=== PATIENT | female | born 2000 | race Caucasian/White ===

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

== ENCOUNTER → 2019-06-28 | Outpatient (CLI) | payer OTHER, MEDICAID ==
[~2019-06-28] MED LIST: ALBU83IN; AZIT200S30; COMPMIS43
--- NOTE | 2019-06-28 16:45 | REP ---
Two-view chest x-ray: 06/28/2019. Indication: Dyspnea. Comparison: None. Findings: The patient is status post median sternotomy. There is no pneumothorax or significant pleural effusion. Air space opacity is noted within the left lower lobe. Remaining lungs are clear. Impression: Left lower lobe pneumonia. Electronically Signed by Fransisco Banuelos DO 06/28/2019 04:36 P
== END ==
LOC: M LRY 16:14
PROVIDERS: ATTEND Nurse Practitioner Family
DX: R09.89 Other specified symptoms and signs involving the circulatory and respiratory systems (principal)

== ENCOUNTER 2019-06-29 12:38 | Inpatient (IN) | payer OTHER, MEDICAID ==
[~2019-06-29] VITALS: Ht 142.2 cm; Wt 55.3 kg
[2019-06-29] MEDS ORDERED: SODIUM CHLORIDE 0.9% 1000ML IV STA ×2 (12:52→13:33)
[2019-06-29] MEDS ORDERED: FLUID PLACE HOLDER IV SCH (13:00)
[2019-06-29] MEDS ORDERED: VANCOMYCIN HCL IV SCH (13:00)
[2019-06-29 13:30] VITALS: BP 111/55
[2019-06-29] MEDS ORDERED: ALBU83IN (13:41)
[2019-06-29] MEDS ORDERED: AZIT200S30 (13:41)
[2019-06-29] MEDS ORDERED: COMPMIS43 (13:41)
--- NOTE | 2019-06-29 13:42 | HPE ---
DATE OF ADMISSION: 06/29/2019 REASON FOR ADMISSION: Pneumonia. 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 This was not associated with any runny nose, fever, change in appetite, decreased activity level. Mom was treating with [id number] cough syrup and watched her at home for a day. After this, she seemed to be improving and went back to school. However, the following day at school, she began to act "not herself" and seemed to be drinking much more than usual and was less playful. About 3 days prior to admission, she developed fever, worsening cough, and diarrhea and vomiting. The diarrhea and vomiting was multiple times a day and she was not tolerating liquids well as fall. She began to be fatigued and was sleeping quite a bit. Mom administered antidiarrheals and by the following day the emesis had slowed down and she began to tolerate liquids. On day prior to admission however, she was still not seeming to improve, the fever was high, and her cough was worsening. She went to an urgent care where she saw a nurse practitioner who ordered a chest x-ray that showed a left lobar pneumonia. Upon arrival she was hypoxic to the 70s per mom. They report that it improved to upper 80s after nebs. She was given outpatient azithromycin for her lobar pneumonia and albuterol and discharged home. She did not improve but worsened and presented to outpatient pediatric office for followup. On day of admission she was voiding well and drinking well, but her respiratory status was worse as described above. In the outpatient pediatric office, a albuterol nebulizer was attempted, which did not provide any relief of symptoms with regards to work of breathing and hypoxia. Supplemental oxygen was applied via face mask and her oxygen level improved from 80% to 91%. Rapid flu swab was positive for influenza A REVIEW OF SYSTEMS: CONSTITUTIONAL : Is as above. HEENT: Mild congestion and rhinorrhea. No photophobia, conjunctival injection or otalgia. CARDIOVASCULAR: They deny chest pain, cyanosis, dizziness, faintness and palpitations. RESPIRATORY: Cough and increased work of breathing as above. GASTROINTESTINAL: Is as above, though these symptoms have resolved. GENITOURINARY (): They deny burning with urination and decreased urine output. MUSCULOSKELETAL: They deny bone pain and joint pain. They do affirm midback pain. SKIN: There is no rash described. There are no hives. No petechia, no other lesions. No bruising. MEDICATIONS PRIOR TO ADMISSION: The patient was on azithromycin but otherwise no medications. ALLERGIES: No known drug allergies. PAST MEDICAL HISTORY: Significant for trisomy 21. Scoliosis. The patient has a history of complete atrioventricular septal defect, which is status post repair at 11 weeks of age. She also has history of subaortic stenosis that was resected at 9 years of age. She does have very mild mitral and tricuspid incompetence which is not clinically significant. She is followed by pediatric cardiology every 2 years and does not have any restrictions from a cardiac standpoint. FAMILY HISTORY: Significant for father with asthma. Brother with seasonal allergies. Paternal grandfather with leukemia. Maternal grandmother with breast cancer. Ages of onset of these cancers is unknown. SOCIAL HISTORY: The patient lives with mother and father and younger brother. She attends school daily. There are no smokers in the home. There are two dogs in the home. The patient is not sexually active. PHYSICAL EXAMINATION: On exam temperature is a 101.4, heart rate is 108, respirations 16, oxygen saturation is 80% on room air, 91% on 4 liters via face mask, blood pressure 110/70. CONSTITUTIONAL: The patient appears mildly dehydrated but is in no acute distress. HEENT: The patient has facies typical of Down syndrome. Conjunctiva is not injected. There is no discharge from the eyes. Nasal mucosa is erythematous. She has mild nasal congestion. Tympanic membranes are translucent and there is a sharp cone of light and ossicles are visible. NECK: Has full range of motion. There is no lymphadenopathy. RESPIRATORY: She has frequent wet cough. There are coarse rales audible in the left lower lobe. The remainder of the lung kaur are clear. There is mildly increased work of breathing. CARDIOVASCULAR: Regular rate and rhythm. There is no heart murmur appreciated. Capillary refill is 3-4 seconds. GASTROINTESTINAL (GI): Abdomen is soft, nontender, nondistended. There is no guarding, rigidity or rebound tenderness. There is no palpable hepatosplenomegaly. SKIN: Warm and dry with no visible rash. RADIOGRAPHIC DATA: Chest x-ray performed at urgent care is reviewed and shows left lower lobe pneumonia. 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 Plan to admit to pediatrics for IV ampicillin, vancomycin, and fluid resuscitation. Will obtain a blood culture, CBC, CMP. Titrate oxygen to keep sats above 92% while awake, 89% while asleep. Mother and floor nurses are informed of plan and verbalized agreement. CHRISD
[2019-06-29] MEDS ORDERED: INFLUENZA QUADRIVALENT PF VACCINE 0.5ML SYRINGE (90686) IM PRN (14:15)
[2019-06-29 14:42] LABS: BASO % 0.4 % (0.0-1.0); EOS % 0.1 % (0.0-3.0); HEMATOCRIT 35.3 % (36.0-47.0); HEMOGLOBIN 12.3 g/dl (12.0-15.5); LYMPH # 0.5 10^3/uL (1.5-5.0); LYMPH % 6.9 % (24.0-44.0); MEAN CORPUSCULAR HEMOGLOBIN 33.3 pg (27.0-33.0); MEAN CORPUSCULAR HGB CONC 34.8 g/dl (32.0-36.5); MEAN CORPUSCULAR VOLUME 95.7 fl (80.0-96.0); MONO # 0.3 10^3/uL (0.0-0.8); MONO % 4.2 % (0.0-5.0); NEUTROPHILS # 6.8 10^3/uL (1.5-8.5); NEUTROPHILS % 87.8 % (36.0-66.0); PLATELET COUNT, AUTOMATED 328 10^3/uL (150-450); RED BLOOD COUNT 3.69 10^6/uL (4.00-5.40); WHITE BLOOD COUNT 7.8 10^3/uL (4.0-10.0)
[2019-06-29 15:09] LABS: ALBUMIN 3.4 GM/DL (3.2-5.2); ALT/SGPT 24 U/L (12-78); BILIRUBIN,TOTAL 0.4 MG/DL (0.2-1.0); BLOOD UREA NITROGEN 12 MG/DL (7-18); CALCIUM LEVEL 8.5 MG/DL (8.5-10.1); CARBON DIOXIDE LEVEL 24 MEQ/L (21-32); CHLORIDE LEVEL 99 MEQ/L (98-107); CREATININE FOR GFR 1.07 MG/DL (0.55-1.30); GLUCOSE, FASTING 113 MG/DL (70-100); POTASSIUM SERUM 3.9 MEQ/L (3.5-5.1); SODIUM LEVEL 132 MEQ/L (136-145); TOTAL PROTEIN 7.6 GM/DL (6.4-8.2)
[2019-06-29] MEDS: KCL 20MEQ IN D5/0.45NS 1000ML 1,000 ML IV SCH (15:27)
[2019-06-29 15:30] VITALS: BP 114/89
[2019-06-29] MEDS: AMPICILLIN 1 GM VIAL IV SCH ×2 (15:39→22:50)
[2019-06-29] MEDS ORDERED: VANCOMYCIN HCL 500 MG in D5W MINI-BAG PLUS 100 ML IV ONE (19:00)
[2019-06-29 20:00] VITALS: BP 128/82
[2019-06-29] MEDS ORDERED: VANCOMYCIN HCL 750 MG, VIAL MATE ADAPTER 1 EACH in D5W 250 ML IV ONE (20:00)
[2019-06-29] MEDS: ACETAMINOPHEN TAB 650MG DOSE (2X325MG) PO PRN (23:13)
[2019-06-29 23:31] VITALS: BP 130/82
[2019-06-30 04:00] VITALS: BP 115/60
[2019-06-30] MEDS: KCL 20MEQ IN D5/0.45NS 1000ML 1,000 ML IV SCH ×2 (04:19→14:25)
[2019-06-30] MEDS: AMPICILLIN 1 GM VIAL IV SCH ×4 (04:19→20:35)
[2019-06-30] MEDS: IBUPROFEN 600 MG TAB PO PRN ×3 (04:46→20:35)
[2019-06-30 09:00] VITALS: BP 112/58
[2019-06-30] MEDS: ALBUTEROL SULFATE 2.5 MG/0.5 ML INH NEB SOLN NEB SCH ×3 (11:38→20:00)
[2019-06-30 15:45] LABS: BLOOD UREA NITROGEN 5 MG/DL (7-18); CALCIUM LEVEL 8.2 MG/DL (8.5-10.1); CARBON DIOXIDE LEVEL 28 MEQ/L (21-32); CHLORIDE LEVEL 106 MEQ/L (98-107); CREATININE FOR GFR 0.83 MG/DL (0.55-1.30); GLUCOSE, FASTING 118 MG/DL (70-100); POTASSIUM SERUM 4.6 MEQ/L (3.5-5.1); SODIUM LEVEL 138 MEQ/L (136-145)
[2019-06-30 16:00] VITALS: BP 133/61
[2019-06-30] MEDS ORDERED: VANCOMYCIN HCL 1,000 MG, VIAL MATE ADAPTER 1 EACH in D5W 250 ML IV SCH (19:00)
[2019-06-30 20:00] VITALS: BP 116/58
[2019-06-30 23:44] VITALS: BP 135/60
[2019-07-01] MEDS: ALBUTEROL SULFATE 2.5 MG/0.5 ML INH NEB SOLN NEB SCH ×4 (01:08→19:20)
[2019-07-01] MEDS: AMPICILLIN 1 GM VIAL IV SCH ×4 (03:32→20:05)
[2019-07-01 04:05] VITALS: BP 134/79
[2019-07-01] MEDS: KCL 20MEQ IN D5/0.45NS 1000ML 1,000 ML IV SCH ×2 (08:17→18:30)
[2019-07-01 09:00] VITALS: BP 120/60
[2019-07-01] MEDS: IBUPROFEN 600 MG TAB PO PRN (09:08)
[2019-07-01] MEDS ORDERED: ALBUTEROL SULFATE 2.5 MG/0.5 ML INH NEB SOLN NEB PRN (09:45)
[2019-07-01 12:15] VITALS: BP 119/73
[2019-07-01] MEDS ORDERED: AZITHROMYCIN 250 MG TAB PO ONE (12:30)
[2019-07-01] MEDS: LACTOBACILLUS ACIDOPHILUS CAP (BACID) PO SCH (13:07)
[2019-07-01 16:30] VITALS: BP 130/72
[2019-07-01] MEDS: ACETAMINOPHEN TAB 650MG DOSE (2X325MG) PO PRN (18:44)
[2019-07-01 20:00] VITALS: BP 119/59
[2019-07-02] VITALS: BP 129/58
[2019-07-02] MEDS: ALBUTEROL SULFATE 2.5 MG/0.5 ML INH NEB SOLN NEB SCH ×4 (02:24→20:51)
[2019-07-02] MEDS: AMPICILLIN 1 GM VIAL IV SCH ×4 (03:50→21:32)
[2019-07-02 04:00] VITALS: BP 125/59
[2019-07-02 08:45] VITALS: BP 120/56
[2019-07-02] MEDS: AZITHROMYCIN 250 MG TAB PO SCH (08:49)
[2019-07-02] MEDS: LACTOBACILLUS ACIDOPHILUS CAP (BACID) PO SCH (08:49)
[2019-07-02] MEDS: IBUPROFEN 600 MG TAB PO PRN ×2 (08:50→20:06)
[2019-07-02 12:25] VITALS: BP 116/85
[2019-07-02] MEDS: KCL 20MEQ IN D5/0.45NS 1000ML 1,000 ML IV SCH (15:22)
[2019-07-02 16:30] VITALS: BP 127/72
[2019-07-02 20:00] VITALS: BP 140/64
[2019-07-03] VITALS: BP 119/67
[2019-07-03] MEDS: ALBUTEROL SULFATE 2.5 MG/0.5 ML INH NEB SOLN NEB SCH ×4 (00:55→19:31)
[2019-07-03] MEDS: AMPICILLIN 1 GM VIAL IV SCH ×3 (03:48→15:00)
[2019-07-03 04:00] VITALS: BP 127/95
[2019-07-03] MEDS: ACETAMINOPHEN TAB 650MG DOSE (2X325MG) PO PRN (04:56)
[2019-07-03 08:00] VITALS: BP 111/54
[2019-07-03] MEDS ORDERED: dexameTHASONE 20 MG/5 ML VIAL (J1100) IV ONE (08:00)
[2019-07-03] MEDS: LACTOBACILLUS ACIDOPHILUS CAP (BACID) PO SCH (09:04)
[2019-07-03] MEDS: AZITHROMYCIN 250 MG TAB PO SCH (09:04)
[2019-07-03 11:53] LABS: HEMATOCRIT 34.6 % (36.0-47.0); HEMOGLOBIN 11.9 g/dl (12.0-15.5); MEAN CORPUSCULAR HEMOGLOBIN 33.9 pg (27.0-33.0); MEAN CORPUSCULAR HGB CONC 34.4 g/dl (32.0-36.5); MEAN CORPUSCULAR VOLUME 98.6 fl (80.0-96.0); PLATELET COUNT, AUTOMATED 399 10^3/uL (150-450); RED BLOOD COUNT 3.51 10^6/uL (4.00-5.40); WHITE BLOOD COUNT 6.7 10^3/uL (4.0-10.0)
--- NOTE | 2019-07-03 11:57 | IPN ---
DATE: 07/03/2019 REASON FOR CONSULTATION: Persistent hypoxia in the face of a recent respiratory infection. REQUESTING PROVIDER: Dr. Crockett HISTORY OF PRESENT ILLNESS: Johana is a 18-year-old female with Down syndrome who presented with acute infectious symptoms initially to an urgent care and then for admission here on June 29. She was tachycardiac and febrile at that point in time and had a left lower lobe pneumonia. She was treated with IV ampicillin, vancomycin and fluid resuscitation. The PCR came back mycoplasma positive pneumonia and therefore her antibiotics were deescalated to ampicillin and azithromycin. As she had been on briefly on azithromycin as an outpatient, it was felt that maybe there is a secondary infection requiring ampicillin. She is also on Bacid. During our hospital stay, she did not have a DVT prophylaxis. However, reportedly, she has been ambulating on a daily basis. Upon my entering the room, the mother and daughter are sleeping. The patient is easily awoken. She is coughing when she wakes. She has having a nonproductive cough. I do not auscultate any wheezing from the bedside. The patient's mother states that she has never had trouble with a history of fluid, edema in the past. No prior history of pulmonary embolism. The patient appears comfortable and in no pain. There have been no documented fevers over the past 24 hours. The patient is not tachypneic, does not appear short of breath. She did have some trouble with vomiting or being nauseous because of coughing at times but is not vomiting today. PAST MEDICAL HISTORY: Trisomy 21, scoliosis, history of ASD repaired at 11 weeks, had a second repair at age 9. According to the mother, according to charts there was subaortic stenosis at that time. Apparently, she has been followed by cardiology every few years without any known restrictions. FAMILY HISTORY: Significant for asthma, seasonal allergies, leukemia and breast cancer. SOCIAL HISTORY: The patient lives with her mother and father. No smoking. No illicit drug use. No alcohol use. REVIEW OF SYSTEMS: Limited because of the patient's mental capacity. HEENT: Congestion and rhinorrhea, which have improved since admission. No headache or difficulty swallowing. Cardiovascular: No chest pain, orthopnea. No lower extremity edema. No palpitations. Respiratory: As per history of present illness. No hemoptysis. No history of tuberculosis or tuberculosis contacts. Gastrointestinal: The patient is tolerating diet well now. No nausea, vomiting over the past 24 hours. No diarrhea. Genitourinary: No burning or pain with urination. No hematuria, nocturia. Neurologic: No history of seizure. No history of head injury. No imbalance. Muscular and skeletal: No bony pain. No joint inflammation. Skin: No rashes, jaundice or bruising. No psoriatic lesions. Psychiatric: Difficult to assess. The patient appears fairly well content despite being ill. Sleep has not been evaluated, possible underlying sleep apnea given body habitus. PHYSICAL EXAMINATION: VITAL SIGNS: Temperatures 98.3, pulse is 74, respiratory rate is 20-22, blood pressure is 111/54, mean arterial pressure is 73, oxygen saturation 95% on 0.50 FIO2 with 20 liters bled in through Vapotherm. When I was in the room, I reduced the FiO2 to 45%. General: Awake, alert, coughing and without audible wheeze. Is able to speak without dyspnea. HEENT: Sclerae clear and anicteric. Pupils equal, react to light. Mucous membranes are moist. Tongue is large. There are no significant tongue lesions. Oropharynx is crowded. Mallampati 4. I am unable to see the posterior pharynx. Neck is supple. No tracheal deviation or mass. Lymphatics: No cervical, supraclavicular or axillary adenopathy. Cardiac: Regular S1, S2. Point of maximum impulse (PMI) is difficult to palpate but appears displaced laterally. Pulmonary: Decreased breath sounds at the bases bilaterally. There is dullness to percussion approximately one-third of the bases bilaterally. Otherwise clear without rales, rhonchi or wheezes. There is no prolongation of the expiratory phase. Abdomen: Soft, nontender, nondistended. Extremities: No cyanosis, clubbing or edema. There is no significant pitting edema. Skin: No rash, jaundice or bruising. Negative Homans' sign of the lower extremities. Neurologic: No unilateral weakness perceived. The patient is moving all extremities appropriately. She has an arm board on her right arm for IV protection. LABORATORIES: White blood cell count of 7.8 that was performed on the , there have been laboratories repeated since that time. There has actually been no blood work repeated since of . The patient tends to be a hard stick and there were no significant abnormalities at that point in time for required monitoring. Mycoplasma PCR, as mentioned above, was positive. Methicillin resistant Staphylococcus aureus (MRSA) PCR was negative from the skin. X-ray from 06/18/2019 shows cardiomegaly, sternal wires, left lower lobe pneumonia on the lateral films. No evidence of pneumothorax or pleural effusion. IMPRESSION: 1. Hypoxemia with a recent pneumonia. The reason for hypoxia is likely recovery from pneumonia; however, the patient has not been on DVT prophylaxis during the time of pneumonia and therefore runs the risk of having a pulmonary embolism. We will check D-dimer. The patient has no lower extremity edema or calf pain. She does not have sinus tachycardia at this point in time but is bordering on sinus tachycardia today. If this is positive, we will proceed with CT angio. If this is negative, we will obtain a chest x-ray. There is some question of volume status in a patient who has cardiomegaly and may have had iatrogenic fluid overload. I will obtain a pro BNP and diuresis may be attempted depending on resolution of hypoxia and results of chest x-ray. The patient is net positive over the past 24 hours. Therefore, the differential for the hypoxia remains wide but the most likely cause is resolving infection. Would continue pulmonary toilet, getting the patient out of bed to a chair on a daily basis, and start pep/lung recruitment exercises. I will continue to follow this patient and complete workup for possible alternative causes of hypoxia. CHRISD
[2019-07-03 12:00] VITALS: BP 118/57
[2019-07-03 12:12] LABS: ALBUMIN 2.5 GM/DL (3.2-5.2); ALT/SGPT 28 U/L (12-78); BILIRUBIN,TOTAL 0.4 MG/DL (0.2-1.0); BLOOD UREA NITROGEN 7 MG/DL (7-18); CALCIUM LEVEL 8.3 MG/DL (8.5-10.1); CARBON DIOXIDE LEVEL 27 MEQ/L (21-32); CHLORIDE LEVEL 104 MEQ/L (98-107); CREATININE FOR GFR 0.76 MG/DL (0.55-1.30); GLUCOSE, FASTING 118 MG/DL (70-100); NT-PRO BNP 218 PG/ML (<125); POTASSIUM SERUM 5.4 MEQ/L (3.5-5.1); SODIUM LEVEL 137 MEQ/L (136-145); TOTAL PROTEIN 6.5 GM/DL (6.4-8.2)
[2019-07-03] MEDS ORDERED: ISOVUE-370 76% 100ML VIAL (Q9967) As Ordered ONE ×2 (12:32→18:22)
[2019-07-03] MEDS: KCL 20MEQ IN D5/0.45NS 1000ML 1,000 ML IV SCH (13:49)
[2019-07-03 16:00] VITALS: BP 133/62
--- NOTE | 2019-07-03 18:27 | REPVR ---
PROCEDURE INFORMATION: Exam: US Duplex Lower Extremity Veins Exam date and time: 07/03/2019 6:01 PM Clinical history: 18 years old, female; Abnormal findings; Abnormal lab test; Elevated d-dimer; Additional info: Positive d-dimer, pathypoxic, unable to do CT scan TECHNIQUE: Imaging protocol: Real-time duplex ultrasound of the Lower Extremities with 2-D marte scale, color Doppler flow and spectral waveform analysis with image documentation. Complete exam focused on the bilateral lower extremity veins. COMPARISON: No relevant prior studies available. FINDINGS: Right deep veins: Unremarkable. The common femoral, femoral, proximal profunda femoral, popliteal and posterior tibial veins are patent without thrombus. Normal Doppler waveforms. Normal compressibility and/or augmentation response. Right superficial veins: Saphenofemoral junction is patent without thrombus. Left deep veins: Unremarkable. The common femoral, femoral, proximal profunda femoral, popliteal and posterior tibial veins are patent without thrombus. Normal Doppler waveforms. Normal compressibility and/or augmentation response. Left superficial veins: Saphenofemoral junction is patent without thrombus. Soft tissues: Unremarkable. IMPRESSION: No sonographic evidence of deep vein thrombosis. Electronically signed by: Eddie Jon On 07/03/2019 18:26:48 PM
[2019-07-03 20:00] VITALS: BP 142/62
[2019-07-03] MEDS: CEFDINIR 300 MG CAP (OMNICEF) PO SCH (20:33)
[2019-07-03] MEDS ORDERED: ENOXAPARIN 40 MG/0.4 ML SYRINGE (J1650) SC SCH (21:00)
[2019-07-04] VITALS (22 sets, daily range): BP systolic 124–170; BP diastolic 60–111
[2019-07-04] MEDS: ALBUTEROL SULFATE 2.5 MG/0.5 ML INH NEB SOLN NEB SCH ×4 (00:23→19:36)
[2019-07-04] MEDS: IBUPROFEN 600 MG TAB PO PRN (00:49)
--- NOTE | 2019-07-04 09:09 | REP ---
Chest x-ray: Two views. History: Hypoxia. Comparison study: June 28, 2019. Findings: The patient is status post prior median sternotomy. Cardiomegaly is observed. Cardiothoracic ratio measures 57.3%. There is a mild pectus excavatum which may exaggerate this. The heart does not appear enlarged on lateral film and is unchanged. The is a fairly large infiltrate throughout the left lower lobe which is more prominent than on the June 28, 2019 study consistent with pneumonia. There is new consolidation in the interstitial pattern in the right lung base. No pleural effusion. Impression: Progressive infiltrates bilaterally consistent with pneumonia. Electronically Signed by Kalia Soni MD 07/04/2019 09:01 A
[2019-07-04] MEDS: LACTOBACILLUS ACIDOPHILUS CAP (BACID) PO SCH (09:39)
[2019-07-04] MEDS: CEFDINIR 300 MG CAP (OMNICEF) PO SCH ×2 (09:39→20:50)
[2019-07-04] MEDS: AZITHROMYCIN 250 MG TAB PO SCH (09:39)
[2019-07-04] MEDS ORDERED: FUROSEMIDE 40 MG TAB PO ONE (10:00)
[2019-07-04] MEDS ORDERED: MIDAZOLAM INJ 2 MG/2 ML VIAL (J2250) As Ordered ONE ×4 (10:28→10:52)
[2019-07-04] MEDS ORDERED: FUROSEMIDE 40 MG/4 ML VIAL (J1940) As Ordered ONE (10:37)
--- NOTE | 2019-07-04 11:29 | REP ---
Portable chest x-ray: Single view. 11:08 a.m. film. History: Status post line placement. Comparison study: 05:23 a.m. film on this date. Findings: A right internal jugular central venous line has been inserted with its tip in the expected location of the superior vena cava. The patient is rotated somewhat to the left for the current exposure. There is no evidence of pneumothorax or hydrothorax. Interstitial infiltrates are again seen in the lung kaur. Prior sternotomy. EKG left electrodes. Electronically Signed by Kalia Soni MD 07/04/2019 11:20 A
[2019-07-04] MEDS ORDERED: MIDAZOLAM INJ 2 MG/2 ML VIAL (J2250) IV SCH (11:30)
[2019-07-04 11:48] LABS: BASO % 0.1 % (0.0-1.0); HEMOGLOBIN 11.7 g/dl (12.0-15.5); LYMPH # 0.6 10^3/uL (1.5-5.0); LYMPH % 7.7 % (24.0-44.0); MEAN CORPUSCULAR HEMOGLOBIN 33.7 pg (27.0-33.0); MEAN CORPUSCULAR HGB CONC 34.4 g/dl (32.0-36.5); MONO # 0.4 10^3/uL (0.0-0.8); MONO % 4.7 % (0.0-5.0); NEUTROPHILS # 6.4 10^3/uL (1.5-8.5); NEUTROPHILS % 86.2 % (36.0-66.0); PLATELET COUNT, AUTOMATED 498 10^3/uL (150-450); RED BLOOD COUNT 3.47 10^6/uL (4.00-5.40); WHITE BLOOD COUNT 7.4 10^3/uL (4.0-10.0)
[2019-07-04] MEDS: PANTOPRAZOLE 40MG INJ (PROTONIX) (C9113) IV SCH (11:57)
[2019-07-04] MEDS: methylPREDNISolone INJ 125 MG/2 ML VIAL (J2930) IV SCH ×2 (11:57→17:12)
[2019-07-04 11:58] LABS: INR 1.22; PROTHROMBIN TIME 15.2 SECONDS (11.8-14.0)
[2019-07-04 11:59] LABS: PARTIAL THROMBOPLASTIN TIME 32.2 SECONDS (25.0-38.4)
[2019-07-04] MEDS ORDERED: HEPARIN SOD (PORCINE) 5000 UNITS/ML VIAL IV ONE (12:00)
[2019-07-04] MEDS ORDERED: MIDAZOLAM INJ 2 MG/2 ML VIAL (J2250) IV ONE (12:00)
[2019-07-04] MEDS ORDERED: FUROSEMIDE 40 MG/4 ML VIAL (J1940) IV ONE ×2 (12:00→18:30)
[2019-07-04] MEDS: HEPARIN DRIP 25,000 UNITS in IV 1 EA IV SCH (12:00)
[2019-07-04 12:10] LABS: ALBUMIN 2.8 GM/DL (3.2-5.2); ALT/SGPT 35 U/L (12-78); BILIRUBIN,TOTAL 0.6 MG/DL (0.2-1.0); BLOOD UREA NITROGEN 10 MG/DL (7-18); CALCIUM LEVEL 9.5 MG/DL (8.5-10.1); CARBON DIOXIDE LEVEL 31 MEQ/L (21-32); CHLORIDE LEVEL 101 MEQ/L (98-107); CHOLESTEROL LEVEL 141 MG/DL (< 200); CPK CREATINE PHOSPHOKINASE 195 U/L (26-192); CREATININE FOR GFR 0.87 MG/DL (0.55-1.30); GLUCOSE, FASTING 134 MG/DL (70-100); LDH LACTATE DEHYDROGENASE 312 U/L (84-246); PHOSPHORUS LEVEL 4.3 MG/DL (2.5-4.9); POTASSIUM SERUM 4.2 MEQ/L (3.5-5.1); SODIUM LEVEL 136 MEQ/L (136-145); TRIGLYCERIDES LEVEL 126 MG/DL (<150)
[2019-07-04 12:29] LABS: ABG BASE EXCESS 4.2 (-2.0-2.0); ABG HCO3 28.2 MEQ/L (22.0-26.0); ABG O2 SATURATION 94.2 % (95.0-99.0); ABG PARTIAL PRESSURE O2 72.5 mmHg (75.0-100.0); ABG STANDARD HCO3 28.2 MEQ/L (22.0-26.0); ABG TOTAL CO2 29.4 MEQ/L (22.0-29.0); ABG pH (ARTERIAL) 7.466 UNITS (7.350-7.450)
--- NOTE | 2019-07-04 12:38 | ECGEPIP ---
[facility] Test Date: 2019-07-04 Pat Name: CAMRYN MAGANA Department: Room: [place] [address] Gender: Female [employer]: JESS : 2000 Requested By: DOMINGO Eugene Order Number: [id number] Reading MD: Mary Vivas Measurements Intervals [place] Rate: 107 P: 55 HI: 166 QRS: -70 QRSD: 111 T: 62 QT: 353 QTc: 472 Interpretive Statements SINUS TACHYCARDIA CONSISTENT WITH PULMONARY DISEASE, INCOMPLETE RIGHT BUNDLE BRANCH BLOCK LEFT ANTERIOR FASCICULAR BLOCK LEFT VENTRICULAR HYPERTROPHY AND ST-T CHANGE POSSIBLE ANTERIOR MYOCARDIAL INFARCTION,(PRWP) OF INDETERMINATE AGE PROLONGED QTC RATE FASTER AND LAT ST CHANGES NEW C/W 12/30/15 Electronically Signed on 07-04-2019 12:38:01 EDT by Mary Vivas
[2019-07-04] MEDS ORDERED: VANCOMYCIN HCL 1,000 MG, VIAL MATE ADAPTER 1 EACH in D5W 250 ML IV ONE (13:00)
--- NOTE | 2019-07-04 13:12 | CCN ---
DATE: 07/04/2019 Ms. Cintron is a 18-year-old female whom I saw on consultation yesterday for hypoxia. The hypoxia worsened overnight. Yesterday she had attempted workup for possible pulmonary embolism given elevated D-dimer and the fact that she was not on DVT prophylaxis during her hospital stay in the face of pneumonia. She was also net positive. On x-ray this morning it appears that she is vascular congestion, however, radiology has concern for possible ongoing pneumonia. The patient has been on Cefdinir and azithromycin. She has not been covered for methicillin resistant Staphylococcus aureus (MRSA) and therefore I have extended this coverage this morning. Because of the severity of her hypoxia now requiring 70% FIO2 30 liters, Vapotherm, she was transferred to the intensive care unit. She had no IV access at that time, IV access had been an issue. IV access was initially obtained with a small wrist IV that was very tenuous and just enough in order to be able to give the patient enough sedative in order to be able to perform an IJ as the patient is uncooperative at times because of her underlying mental capacity. Overall, she did well but did require quite a bit of Versed and was still awake, however, quite sedated. She had no significant oxygen desaturations with sedation during the central line placement. Lasix was also given. Pimentel was placed. The patient is having large amounts of clear very dilute urine. Oxygen saturations are already improving. It is hard to get symptoms from the patient, she continues to have a nonproductive cough, has difficulty lying down, I am not sure if this is behavior or if she is truly orthopneic. Currently, temperature is 99.0, pulse is 94, respiratory rate is 32, blood pressure is 136/75 with a mean arterial pressure of 95, oxygen saturation initially 94% at 70% FiO2, 30 liters bled in. GENERAL: Awake, alert, able to speak full sentences. HEENT: Sclerae clear and anicteric. Pupils equal, round to light. Mucous membranes are moist without lesions. Tongue is large and midline. Mallampati 4. Unable to view the posterior pharynx. Neck: Supple. No tracheal deviation or mass. Right IJ is in place without surrounding erythema or exudate. Lymphatics: No cervical, supraclavicular or axillary adenopathy. Cardiac: Distant S1, S2 without audible murmur, rub or gallop. Jugular venous pressure difficult to assess due to body habitus. Central venous pressures being measured. Pulmonary: Decreased breath sounds throughout. Few crackles at the bases. No dullness to percussion. Abdomen: Soft, nontender, nondistended. No hepatosplenomegaly. No masses or hernia. Pimentel catheter was placed without evidence of trauma. No evidence of bleeding and again had very dilute urine that appears the consistency and clarity of water. Extremities: Minimal nonpitting edema. LABORATORY EVALUATION: Pending for today as the patient had no access until the central line was placed. IMAGING: Chest x-ray post central line placement shows the tip of the central line in the superior vena cava, probable cardiomegaly, left lower lobe infiltrate greater than right. Of note, this was taken after Lasix administration, it is a portable film. Although it does appear somewhat better already than this morning but they are different techniques. There is some cardiomegaly on the PA film but lateral I agree does not show significant cardiomegaly. There are no pleural effusions but there is infiltrate predominately in the left base. Lower extremity Doppler from yesterday is unremarkable and do not show any evidence of lower extremity DVT. IMPRESSION: 18-year-old with severe hypoxia at risk for requiring mechanical ventilation. PLAN: 1. Severe hypoxia. We will attempt diuresis. I suspect this is the most likely cause of her ongoing hypoxia; however, at this point in time, with her elevated D-dimer I cannot actually rule out the possibility of pulmonary embolism and since there is an increase in her oxygen requirements I will cover her with full dose heparin. At this point in time, I do not have confirmation she has a pulmonary embolism however I am treating her due to the severity of her hypoxia. After administration of fluid, she did have some improvement, therefore this makes volume overload more likely. We will get a transthoracic echocardiogram given her history of Down syndrome and the appearance of the cardiac silhouette on at least the PA films. Probable underlying cardiomegaly. We will monitor for function and valvular disease. I do not auscultate a murmur on exam, however. It is quite possible that she has an underlying ongoing pneumonia, especially because there continues to be left lower lobe infiltrate. My initial suspicion is that this is a residual inflammation from mycoplasma pneumoniae that she was admitted with. She is not febrile and she does not white count however, given the severity of her hypoxia, I have extended her coverage to include vancomycin. If she recovers well with diuretics, we will de-escalate antibiotics. Bedside critical care time was 1 hour and 38 minutes, this excludes all procedures. The patient will have DVT prophylaxis with heparin, gastrointestinal prophylaxis with Protonix. For now she is nothing by mouth due to her respiratory status, but we will start feedings when the patient is able to establish consistency in her respiratory status. MTDD
--- NOTE | 2019-07-04 13:41 | RO ---
DATE OF PROCEDURE: 07/04/2019 PROCEDURE: Right internal jugular vein catheter. PREPROCEDURE DIAGNOSES: Severe hypoxia, inability to obtain vascular access, trisomy 21. POSTPROCEDURE DIAGNOSES: Severe hypoxia, inability to obtain vascular access, trisomy 21. PROCEDURALIST: Dr. Thompson GOAL UMPIRE: None. ANESTHESIA: 1% lidocaine and 5 mg IV Versed. DESCRIPTION OF PROCEDURE: The patient was quite agitated, had no IV access, was quite hypoxic. Therefore, it was determined that because of her inability to tolerate the procedure that Versed would be used. I reviewed the case with her parents who are her guardians. They agree that everything should be done to try and save her life. They understood the possibility of the need for intubation. They gave consent for the triple-lumen verbally and understood the rest of bleeding, infection, pneumothorax. I slowly gave the patient Versed 1 mg at a time every 3 minutes. The patient never was asleep, was conversant in all points in time but eventually relaxed enough for us to be able to perform the procedure. The right IJ was prepped and draped in a sterile manner, Chlorhexidine. Full barrier precautions. Time-out was performed with two patient identifiers identifying correct site, correct procedure. 1% lidocaine was then introduced subcutaneously. The ultrasound was then used to view the vein, and the [place] syringe was passed into the vein on the first pass with return of venous blood flow. Wire was fed through the needle and the needle was removed. The triple-lumen catheter was then placed via modified Seldinger technique. The wire was obviously removed. All ports returned venous blood flow and flushed easily. The wire was obviously removed. The catheter was sutured in place at 15 cm and a sterile impregnated dressing was placed over the site. There are no observed complications. The patient tolerated the procedure well. Postprocedure chest x-ray shows the tip of the catheter in the SVC. MTDD
[2019-07-04 14:28] LABS: ALBUMIN 2.8 GM/DL (3.2-5.2); ALT/SGPT 34 U/L (12-78); BILIRUBIN,TOTAL 0.4 MG/DL (0.2-1.0); BLOOD UREA NITROGEN 11 MG/DL (7-18); CALCIUM LEVEL 9.5 MG/DL (8.5-10.1); CARBON DIOXIDE LEVEL 31 MEQ/L (21-32); CHLORIDE LEVEL 99 MEQ/L (98-107); GLUCOSE, FASTING 134 MG/DL (70-100); POTASSIUM SERUM 3.9 MEQ/L (3.5-5.1); SODIUM LEVEL 136 MEQ/L (136-145)
[2019-07-04] MEDS: HEPARIN SOD (PORCINE) 5000 UNITS/ML VIAL IV PRN (18:43)
[2019-07-04] MEDS: CHLORHEXIDINE GLUCONATE 0.12 % 15ML UDC (PERIDEX ORAL RINSE) MT SCH (20:50)
[2019-07-04 21:28] LABS: BLOOD UREA NITROGEN 14 MG/DL (7-18); CALCIUM LEVEL 8.9 MG/DL (8.5-10.1); CARBON DIOXIDE LEVEL 32 MEQ/L (21-32); CHLORIDE LEVEL 96 MEQ/L (98-107); CREATININE FOR GFR 0.95 MG/DL (0.55-1.30); GLUCOSE, FASTING 159 MG/DL (70-100); POTASSIUM SERUM 3.5 MEQ/L (3.5-5.1); SODIUM LEVEL 136 MEQ/L (136-145)
[2019-07-05] VITALS (11 sets, daily range): BP systolic 117–152; BP diastolic 56–85
[2019-07-05] MEDS: methylPREDNISolone INJ 125 MG/2 ML VIAL (J2930) IV SCH ×5 (00:21→23:46)
[2019-07-05] MEDS: ALBUTEROL SULFATE 2.5 MG/0.5 ML INH NEB SOLN NEB SCH ×4 (01:32→20:23)
[2019-07-05 05:42] LABS: ABG BASE EXCESS 6.1 (-2.0-2.0); ABG HCO3 29.3 MEQ/L (22.0-26.0); ABG O2 SATURATION 99.1 % (95.0-99.0); ABG PARTIAL PRESSURE CO2 37.2 mmHg (35.0-45.0); ABG TOTAL CO2 30.4 MEQ/L (22.0-29.0); ABG pH (ARTERIAL) 7.514 UNITS (7.350-7.450)
--- NOTE | 2019-07-05 07:44 | ECHO ---
DATE OF STUDY: 07/04/2019 REFERRING PHYSICIAN: Dr. Sindhu Gomez INDICATION: Hypoxia, cardiomegaly, Down syndrome. HEIGHT: 56 inches. WEIGHT: 59 kg. DIMENSIONS: IVS: 1.0 LV: 4.0 LVPW: 1.3 LA: 2.7 Aorta: 2.2 Ascending aorta: 1.8 Mitral E wave velocity: 106 A wave 62 E prime septal: 7.8 E prime lateral: 10.2 FINDINGS: The study is of acceptable technical quality even though especially apical views are poor. Left ventricle is normal size and normal systolic function, I estimate ejection fraction (EF) around 65-70%. No obvious segmental wall motion abnormalities are seen. The right ventricle was relatively poorly seen, but grossly appears normal. Both atria appear normal. All four cardiac valves were reasonably well seen and appear normal. No pericardial effusion is noted. Inferior vena cava is relatively small caliber indicative of normal central venous pressure. Aortic root and aortic arch appear normal. Abdominal aorta was not well visualized. Doppler interrogation of aortic valve reveals no stenosis and trace insufficiency. There is also trace mitral and trace tricuspid insufficiency. Calculated pulmonary artery pressure is in high 20s corresponding to upper limits of normal values. There is some mildly increased velocity over descending portion of aortic arch, peak velocity was 3.1 meters per second with calculated gradient 39 mmHg. This could potentially indicate very mild form of coarctation of the aorta. Mitral inflow pattern and tissue Doppler imaging of mitral annulus reveal normal diastolic function. CONCLUSIONS: 1. Study is of acceptable technical quality. 2. Normal LV size, systolic and diastolic function. 3. No hemodynamically significant valvular disease. 4. Likely normal central venous pressure and normal pulmonary artery pressure. 5. Slightly increased velocity in descending aorta, indicative of possibility of very mild form of coarctation of the aorta. COMMENT: The study does not provide obvious explanation for hypoxemia.
[2019-07-05] MEDS: HEPARIN SOD (PORCINE) 5000 UNITS/ML VIAL IV PRN (07:55)
[2019-07-05 08:10] LABS: BASO % 0.2 % (0.0-1.0); HEMATOCRIT 32.9 % (36.0-47.0); HEMOGLOBIN 11.5 g/dl (12.0-15.5); LYMPH # 0.5 10^3/uL (1.5-5.0); LYMPH % 8.9 % (24.0-44.0); MEAN CORPUSCULAR HEMOGLOBIN 34.3 pg (27.0-33.0); MEAN CORPUSCULAR VOLUME 98.2 fl (80.0-96.0); MONO # 0.1 10^3/uL (0.0-0.8); NEUTROPHILS # 5.3 10^3/uL (1.5-8.5); NEUTROPHILS % 87.6 % (36.0-66.0); PLATELET COUNT, AUTOMATED 495 10^3/uL (150-450); RED BLOOD COUNT 3.35 10^6/uL (4.00-5.40); WHITE BLOOD COUNT 6.1 10^3/uL (4.0-10.0)
[2019-07-05] MEDS: PANTOPRAZOLE 40MG INJ (PROTONIX) (C9113) IV SCH (08:36)
[2019-07-05] MEDS: AZITHROMYCIN 250 MG TAB PO SCH (08:36)
[2019-07-05] MEDS: CHLORHEXIDINE GLUCONATE 0.12 % 15ML UDC (PERIDEX ORAL RINSE) MT SCH ×2 (08:36→20:34)
[2019-07-05] MEDS: CEFDINIR 300 MG CAP (OMNICEF) PO SCH ×2 (08:36→20:33)
[2019-07-05] MEDS: LACTOBACILLUS ACIDOPHILUS CAP (BACID) PO SCH (08:36)
[2019-07-05 08:43] LABS: ALBUMIN 2.7 GM/DL (3.2-5.2); ALT/SGPT 32 U/L (12-78); BILIRUBIN,TOTAL 0.3 MG/DL (0.2-1.0); BLOOD UREA NITROGEN 22 MG/DL (7-18); CALCIUM LEVEL 9.1 MG/DL (8.5-10.1); CARBON DIOXIDE LEVEL 34 MEQ/L (21-32); CHLORIDE LEVEL 94 MEQ/L (98-107); CREATININE FOR GFR 0.85 MG/DL (0.55-1.30); GLUCOSE, FASTING 149 MG/DL (70-100); POTASSIUM SERUM 3.5 MEQ/L (3.5-5.1); SODIUM LEVEL 135 MEQ/L (136-145)
[2019-07-05] MEDS ORDERED: VANCOMYCIN HCL 1,000 MG, VIAL MATE ADAPTER 1 EACH in D5W 250 ML IV SCH (09:00)
--- NOTE | 2019-07-05 10:04 | REP ---
CHEST, PORTABLE: AP portable view of the chest is performed and compared to a prior study of 07/04/2019. Cardiomediastinal silhouette is unchanged. Right central venous catheter is again seen with the tip in superior vena cava. Bibasilar interstitial infiltrates appear unchanged. IMPRESSION: Stable exam. Electronically Signed by Doug Howard MD 07/06/2019 05:27 P
[2019-07-05] MEDS ORDERED: POTASSIUM CHL PWD 20 MEQ PACKET PO ONE (11:00)
--- NOTE | 2019-07-05 11:18 | CCN ---
DATE: 07/05/2019 CRITICAL CARE TIME: 51 minutes this excludes all procedures. The patient remains critically ill with significant hypoxia. On arrival to her room, she is on Vapotherm with an FiO2 of 0.70 and 30 liter flow. Her arterial blood gas does show some increase in the pAO2. Due to the difficulty of obtaining a CT angiogram, the patient was started empirically on heparin drip as D-dimer was over 3000. There continues to be a concern for untreated pneumonia, therefore, antibiotic regimen was changed change to include vancomycin. The patient also received diuresis at bedside yesterday which did result in a net diuresis of over 2 liters. BUN is slightly elevated today along with bicarb increasing on arterial blood gas. There is a slight metabolic alkalosis. The patient this morning, denies any discomfort. She is coughing. No headache, fevers, chills. She states she is breathing better/ Temperature is 98.6, pulse is 82, respiratory rate is 22, blood pressure is 136/63 with an oxygen saturation of 97% on 0.70 FiO2 30 liters. While I was in the room, I decreased her to 45% FiO2. After a while of being on that FiO2, I did decrease the flow rate to 25 liters. The patient has been having approximately 20 mL an hour out. General: Easily awakens alert, conversant. Does not appear dyspneic. HEENT: Sclerae clear. Pupils equal and reactive to light. Mucous membranes are mostly moist. Tongue is slightly dry and she sleeps with her tongue outside her mouth. She has Mallampati IV airway, significantly crowded airway with macroglossia. Neck is supple. No tracheal deviation or mass. Right internal jugular (IJ) is in place without surrounding erythema. No thyromegaly. Lymphs: No cervical supraclavicular axillary adenopathy. Cardiac: Regular S1,S 2 without audible murmur, rub or gallop. No elevated jugular venous pulse (JVP). No systemic edema. Pulmonary: Better air entry and less rales at the bases. Abdomen: Soft, nontender, nondistended. No hepatosplenomegaly. No masses or hernia. Extremities: No cyanosis, clubbing or edema. A few bruises over the right anticubitis. No jaundice. Musculoskeletal: Appropriate for stated age and history. No evidence joint effusion. Laboratory evaluation shows a white blood cell count of 6.1, hemoglobin 11.5, hematocrit 32.9, platelet count 495. Sodium 135, potassium 3.5, chloride 94, bicarb 34, BUN 22, creatinine 0.85 with a glucose 149, albumin 2.7. Arterial blood gas shows a pH of 7.51, pCO2 of 37, PO2 176. Chest x-ray this morning shows continued bilateral nonspecific infiltrate. No significant pleural effusions. No pneumothorax. Transthoracic echocardiogram, although I thought the LV was thickened when I viewed the echocardiogram, it was read as normal except for possible mild coarctation of the aorta. Even pulmonary pressures were read as normal. IMPRESSION: 1. Hypoxia: Chest x-ray without significant improvement. The patient had significant improvement over the past 24 hours. However for different interventions were performed including initiation of full anticoagulation for the possibility of pulmonary embolism, steroids as the patient had no improvement while on antibiotics. Additional antibiotics in the form of vancomycin and diuretics. The most immediate effect that was seen was the diuresis of nearly 2.7 liters. Due to the fact that she is slightly dry and the BUN is up, will continue to monitor this to see when she is able to diurese more. I believe this could be the potential for her significant oxygen improvement over the past 24 hours. However, pulmonary embolism remains in the differential especially because she was in the hospital for nearly a week without anticoagulation and had a positive D-dimer. Bilateral lower extremity Dopplers were negative unable to obtain CT angiogram. Will attempt V/Q scan to better evaluate whether or not the patient has any matched V/Q deficits to suggest pulmonary embolism. 2. Pneumonia: Less likely ongoing pneumonia. However, the patient has nonproductive cough. I do not believe she has any significant mucus or difficulty with mucociliary clearance. Therefore I think we can stop the chest vest. Will continue cefepime and vancomycin but will add de-escalate as soon as possible. 3. Hypokalemia: Replaced orally. The patient remains extremely guarded as the patient was severely hypoxic nearing intubation. Will continue to monitor in the intensive care unit (ICU).
[2019-07-05] MEDS: HEPARIN DRIP 25,000 UNITS in IV 1 EA IV SCH (12:38)
--- NOTE | 2019-07-05 17:56 | REP ---
V/Q SCAN: Following the intravenous administration of 5.5 millicuries of Technetium 99M tagged MAA and the inhalation of 1 millicurie technetium 99M DTPA aerosol, multiple images of the lungs were obtained in various projections. Prominent cardiac silhouette on the left causes matching profusion and ventilation defect. No significant profusion defects are seen and there are certainly no areas of V/Q mismatch. IMPRESSION: Low probability of pulmonary embolism. Electronically Signed by Doug Howard MD 07/07/2019 09:32 A
[2019-07-06] VITALS (8 sets, daily range): BP systolic 95–156; BP diastolic 57–83
[2019-07-06] MEDS: ALBUTEROL SULFATE 2.5 MG/0.5 ML INH NEB SOLN NEB SCH ×4 (01:30→19:35)
[2019-07-06 05:30] LABS: ABG BASE EXCESS 3.8 (-2.0-2.0); ABG O2 SATURATION 95.7 % (95.0-99.0); ABG PARTIAL PRESSURE CO2 40.7 mmHg (35.0-45.0); ABG PARTIAL PRESSURE O2 81.7 mmHg (75.0-100.0); ABG STANDARD HCO3 27.8 MEQ/L (22.0-26.0); ABG TOTAL CO2 29.2 MEQ/L (22.0-29.0); ABG pH (ARTERIAL) 7.455 UNITS (7.350-7.450)
[2019-07-06] MEDS: methylPREDNISolone INJ 125 MG/2 ML VIAL (J2930) IV SCH ×3 (05:51→17:51)
[2019-07-06] MEDS ORDERED: FUROSEMIDE 40 MG/4 ML VIAL (J1940) IV ONE (08:15)
--- NOTE | 2019-07-06 08:15 | REP ---
Clinical: Hypoxia . Comparison: 07/05/2019 . Findings: Right IJ line with tip in the SVC. The mediastinum and cardiac silhouette are stable and within normal limits for portable technique. The lung kaur demonstrate perihilar and lower lobe opacities improved from prior examination. No effusion. No pneumothorax. Impression: Perihilar and lower lobe opacities mildly improved. Chronic stable changes. Electronically Signed by William Mistry MD 07/06/2019 08:07 A
[2019-07-06 09:08] LABS: VANCOMYCIN LEVEL TROUGH 3.8 UG/ML (10.0-20.0)
[2019-07-06] MEDS: PANTOPRAZOLE 40MG INJ (PROTONIX) (C9113) IV SCH (09:25)
[2019-07-06] MEDS: LACTOBACILLUS ACIDOPHILUS CAP (BACID) PO SCH (09:25)
[2019-07-06] MEDS: CHLORHEXIDINE GLUCONATE 0.12 % 15ML UDC (PERIDEX ORAL RINSE) MT SCH ×2 (09:25→20:25)
[2019-07-06] MEDS: CEFDINIR 300 MG CAP (OMNICEF) PO SCH ×2 (09:25→20:25)
[2019-07-06] MEDS: VANCOMYCIN HCL 1,000 MG, VIAL MATE ADAPTER 1 EACH in D5W 250 ML IV SCH ×2 (09:41→20:25)
[2019-07-06 10:54] LABS: BASO % 0.1 % (0.0-1.0); HEMATOCRIT 31.5 % (36.0-47.0); HEMOGLOBIN 11.4 g/dl (12.0-15.5); LYMPH # 0.5 10^3/uL (1.5-5.0); LYMPH % 7.1 % (24.0-44.0); MEAN CORPUSCULAR HEMOGLOBIN 36.3 pg (27.0-33.0); MEAN CORPUSCULAR HGB CONC 36.2 g/dl (32.0-36.5); MEAN CORPUSCULAR VOLUME 100.3 fl (80.0-96.0); MONO # 0.2 10^3/uL (0.0-0.8); MONO % 3.2 % (0.0-5.0); NEUTROPHILS # 6.3 10^3/uL (1.5-8.5); NEUTROPHILS % 87.8 % (36.0-66.0); PLATELET COUNT, AUTOMATED 460 10^3/uL (150-450); RED BLOOD COUNT 3.14 10^6/uL (4.00-5.40); WHITE BLOOD COUNT 7.1 10^3/uL (4.0-10.0)
[2019-07-06 11:06] LABS: ALBUMIN 2.6 GM/DL (3.2-5.2); ALT/SGPT 28 U/L (12-78); BILIRUBIN,TOTAL 0.3 MG/DL (0.2-1.0); BLOOD UREA NITROGEN 26 MG/DL (7-18); CALCIUM LEVEL 8.6 MG/DL (8.5-10.1); CARBON DIOXIDE LEVEL 32 MEQ/L (21-32); CHLORIDE LEVEL 97 MEQ/L (98-107); GLUCOSE, FASTING 135 MG/DL (70-100); POTASSIUM SERUM 4.7 MEQ/L (3.5-5.1); SODIUM LEVEL 136 MEQ/L (136-145); TOTAL PROTEIN 6.9 GM/DL (6.4-8.2)
--- NOTE | 2019-07-06 11:42 | CCN ---
DATE: 07/06/2019 Johana is seen in the intensive care unit (ICU). Her mother is at her bedside. During the night, her Vapotherm was turned up 70%. Currently, she is back at 45% FiO2 and her saturations are in the high 90s. It appears that she does desaturate during the night. Nursing denies any other acute issues with the patient. She is afebrile. She had been getting some diuresis but diuresis has been going slow due to she does appear little dry. A VQ scan was done yesterday showing low probability of pulmonary embolus (PE) and therefore heparin drip was discontinued. PHYSICAL EXAMINATION: VITALS: Temperature 99.0, pulse 88, blood pressure 156/70, respiratory rate 18, pulse ox 97% on Vapotherm and a flow rate of 25. FiO2 45. GENERAL: The patient is sitting up in a chair. She is conversant. She is using nebulizer currently and does not appear dyspneic. HEENT: Head is normocephalic, atraumatic. Pupils equal and react to light. Sclerae is clear. Mucous membranes are moist. Tongue does appear to be slightly dry. She does have crowded airway with macroglossia. NECK: Neck is supple. She has a right internal jugular line in place without any significant surrounding erythema. No thyromegaly. No tracheal deviation. No cervical lymphadenopathy. CARDIAC: Regular rate and rhythm. S1, S2. No obvious murmur. PULMONARY: Some mild crackles at the bilateral bases. No accessory muscle use. ABDOMEN: Positive bowel sounds, soft, nontender. No obvious organomegaly. No rebound or guarding. EXTREMITIES: No clubbing, cyanosis or edema. LABS: WBC 7.1, hemoglobin 11.4, hematocrit 31.5, platelets 460. Sodium 136, potassium 4.7, chloride 97, carbon dioxide 32, BUN 26, creatinine 0.8, glucose 135, calcium 8.6, total bilirubin 0.3, AST 12, ALT 28, alk phos 61, total protein 6.9, albumin 2.6. ABG: pH 7.455, pCO2 40.7, pO2 81.7, vancomycin trough 3.8. Chest x-ray today shows the lower lobe opacities are improved. There is a right lower lobe density consistent with old pneumonia. Right IJ line is in place. Sternotomy wires noted. ASSESSMENT/PLAN: Hypoxia: Hypoxia likely due to oxygen lung de-recruitment at nighttime as she tends to desaturate at night time requiring increased FiO2. Suspect underlying sleep apnea. PLAN: Start the patient on CPAP. Will start her at 5 cm of pressure. Also will add PEP therapy. Diuresis does appear to be helping although she is a little dry so therefore will have to diurese very cautiously. She is being covered with cefdinir and vancomycin for the possibility of pneumonia and difficulty with hypoxia despite adequate treatment for Mycoplasma pneumoniae. She remains on IV steroids. Blood pressure has been elevated and we may be nearing time to start antihypertensive therapy. Will continue to monitor closely. V/Q scan showed low probability of pulmonary embolus (PE) and therefore heparin drip was discontinued yesterday. Will add Lovenox for deep venous thrombosis (DVT) prophylaxis. Total critical care time excluding all procedures was 50 minutes. MTDD
[2019-07-06] MEDS: ENOXAPARIN 40 MG/0.4 ML SYRINGE (J1650) SC SCH (12:30)
--- NOTE | 2019-07-06 13:58 | PHACANCOPD ---
PHARMACY VANCOMYCIN DOSING Pt Demographics Demographics Patient Age:18 , Weight:55.300 , Gender: female Adjusted Body Weight Events Past 24 Hours Events Past 24 Hours: YES: Other Vancomycin Vancomycin Target Ranges: 15-20 mcg/ml Vancomycin Load Y/N: Yes Load Dose Date Time Vancomycin Load Dose: 1250 Date: Time: Vancomycin Dose Date: 07/06/19. Current Vancomycin Dose: [1g q24h] Intermittent Dosing?: No Labs Labs Vital Signs Date Time Temp Pulse Resp B/P (MAP) Pulse Ox O2 Delivery O2 Flow Rate FiO2 07/06/19 10:57 90 HVNI-Vapotherm 25.0 45 07/06/19 10:00 86 18 156/70 (98) 92 HVNI-Vapotherm 25.0 45 07/06/19 08:00 98.6 59 18 148/77 (100) 93 HVNI-Vapotherm 30.0 70 07/06/19 06:00 55 07/06/19 04:00 99.0 59 18 142/72 (95) 93 HVNI-Vapotherm 30.0 70 07/06/19 04:00 30.0 70 07/06/19 00:00 98.6 82 16 143/83 (103) 93 HVNI-Vapotherm 30.0 70 07/06/19 00:00 30.0 70 07/05/19 20:28 96 HVNI-Vapotherm 25.0 45 07/05/19 20:00 98.0 81 18 118/58 (78) 96 HVNI-Vapotherm 25.0 45 07/05/19 20:00 25.0 45 07/05/19 20:00 96 HVNI-Vapotherm 25.0 45 07/05/19 18:32 96 HVNI-Vapotherm 25.0 45 07/05/19 17:00 87 16 125/65 (85) 97 HVNI-Vapotherm 25.0 45 07/05/19 16:00 25.0 45 07/05/19 16:00 96 HVNI-Vapotherm 25.0 45 07/05/19 15:22 98.1 07/05/19 15:00 93 118/56 (76) 97 HVNI-Vapotherm 25.0 45 07/05/19 14:50 87 18 07/05/19 14:50 95 HVNI-Vapotherm 25.0 45 07/05/19 14:44 100 22 117/69 (85) 97 HVNI-Vapotherm 25.0 45 07/05/19 14:30 97 Non-Rebreather 100 07/05/19 14:10 97 Non-Rebreather 100 Intake & Output 07/06/19 06:00 Intake Total 1136 ml Output Total 702 ml Balance 434 ml Laboratory Tests 07/05/19 15:13: Activated Partial Thromboplast Time 69.7H 07/06/19 05:12: Blood Gas Bicarbonate Standard 27.8H, Arterial Blood pH 7.455H, Arterial Blood Partial Pressure CO2 40.7, Arterial Blood Partial Pressure O2 81.7, Arterial Blood Total CO2 29.2H, Arterial Blood HCO3 28.0H, Arterial Blood Base Excess 3.8H, Arterial Blood Oxygen Saturation 95.7 07/06/19 08:20: White Blood Count 7.1, Red Blood Count 3.14L, Hemoglobin 11.4L, Hematocrit 31.5L, Mean Corpuscular Volume 100.3H, Mean Corpuscular Hemoglobin 36.3H, Mean Corpuscular Hemoglobin Concent 36.2, Red Cell Distribution Width 11.8, Platelet Count 460H, Immature Granulocyte % (Auto) 1.8, Neutrophils (%) (Auto) 87.8H, Lymphocytes (%) (Auto) 7.1L, Monocytes (%) (Auto) 3.2, Eosinophils (%) (Auto) 0.0, Basophils (%) (Auto) 0.1, Neutrophils # (Auto) 6.3, Lymphocytes # (Auto) 0 .5L, Monocytes # (Auto) 0.2, Eosinophils # (Auto) 0.0, Basophils # (Auto) 0.0, Nucleated Red Blood Cells % (auto) 0.0 07/06/19 08:25: Sodium Level 136, Potassium Level 4.7#, Chloride Level 97L, Carbon Dioxide Level 32, Anion Gap 7L, Blood Urea Nitrogen 26H, Creatinine 0.80, Fasting Glucose 135H, Calcium Level 8.6, Total Bilirubin 0.3, Aspartate Amino Transf (AST/SGOT) 12, Alanine Aminotransferase (ALT/SGPT) 28, Alkaline Phosphatase 61, Total Protein 6.9, Albumin 2.6L, Albumin/Globulin Ratio 0.60L, Vancomycin Level Trough 3.8L Microbiology 07/03/19 Gastrointestinal Tract Panel (PCR) - Final, Complete 07/01/19 Respiratory Virus Panel (PCR) ([facility]) - Final, Complete Mycoplasma Pneumoniae 06/29/19 Blood Culture - Final, Complete NO GROWTH AFTER 5 DAYS Current Medications Medications (Trade) Dose Ordered Sig/[place] Route PRN Reason Start Time Stop Time Status Last Admin Dose Admin Albuterol Sulfate (Proventil Neb) 2.5 mg Q2HP PRN NEB SOB/WHEEZING 07/01/19 09:45 07/02/19 12:40 2.5 MG Cefdinir (Omnicef) 300 mg BID PO 07/03/19 21:00 07/06/19 09:25 300 MG Chlorhexidine Gluconate (Peridex Oral Rinse) SWAB/BRUSH ORAL CAVITY BID MT 07/04/19 21:00 07/06/19 09:25 15 ML Enoxaparin Sodium (Lovenox) 40 mg DAILY SC 07/06/19 09:00 07/06/19 12:30 40 MG Lactobacillus Acidophilus (Bacid) 1 ea DAILY PO 07/01/19 09:00 07/06/19 09:25 1 EA Methylprednisolone (SOLUmedrol) 60 mg Q6H IV 07/04/19 12:00 07/06/19 12:31 60 MG Pantoprazole Sodium (Protonix) 40 mg DAILY IV 07/04/19 09:00 07/06/19 09:25 40 MG Vancomycin HCl 1000 mg/IV Miscellaneous Supplies 1 each/ Dextrose 270 ml @ 270 mls/hr Q12H IV 07/06/19 09:00 07/06/19 09:41 270 MLS/HR Micro Microbiology 07/03/19 Gastrointestinal Tract Panel (PCR) - Final, Complete 07/01/19 Respiratory Virus Panel (PCR) ([facility]) - Final, Complete Mycoplasma Pneumoniae 06/29/19 Blood Culture - Final, Complete NO GROWTH AFTER 5 DAYS Creatinine Clearance Date:07/06/19. Creatinine Clearance: . Assessment and Plan Maintaining Current Dose?: No Reason for dose change: Trough too low Pharmacist Note Pharmacist Note Date: 07/06/19. Pharmacist note: Trough obtained at 0830 resulted at 3.8 after #2 1gram doses. No SCr was obtained this morning so I am going to try to get that from this mornings labs, however, renal function improved on 07/04 so I am initially changing dose to 1G q12h @0900 with a trough scheduled for tomorrow at 0800. I will continue to monitor this patient and adjust dose as needed. CHRISTINA GOMES PHARMACY Jul 06, 2019 13:58
[2019-07-07] VITALS: BP 119/57
[2019-07-07] MEDS: methylPREDNISolone INJ 125 MG/2 ML VIAL (J2930) IV SCH ×2 (00:57→05:03)
[2019-07-07] MEDS: ALBUTEROL SULFATE 2.5 MG/0.5 ML INH NEB SOLN NEB SCH ×4 (01:47→19:47)
[2019-07-07 04:45] VITALS: BP 142/68
[2019-07-07 05:18] LABS: HEMATOCRIT 32.2 % (36.0-47.0); HEMOGLOBIN 11.5 g/dl (12.0-15.5); MEAN CORPUSCULAR HEMOGLOBIN 35.1 pg (27.0-33.0); MEAN CORPUSCULAR HGB CONC 35.7 g/dl (32.0-36.5); MEAN CORPUSCULAR VOLUME 98.2 fl (80.0-96.0); PLATELET COUNT, AUTOMATED 412 10^3/uL (150-450); RED BLOOD COUNT 3.28 10^6/uL (4.00-5.40); WHITE BLOOD COUNT 7.4 10^3/uL (4.0-10.0)
[2019-07-07 05:38] LABS: ALBUMIN 2.7 GM/DL (3.2-5.2); ALT/SGPT 27 U/L (12-78); BILIRUBIN,TOTAL 0.3 MG/DL (0.2-1.0); BLOOD UREA NITROGEN 26 MG/DL (7-18); CALCIUM LEVEL 8.6 MG/DL (8.5-10.1); CARBON DIOXIDE LEVEL 36 MEQ/L (21-32); CHLORIDE LEVEL 95 MEQ/L (98-107); CREATININE FOR GFR 0.83 MG/DL (0.55-1.30); GLUCOSE, FASTING 157 MG/DL (70-100); POTASSIUM SERUM 4.4 MEQ/L (3.5-5.1); SODIUM LEVEL 135 MEQ/L (136-145); TOTAL PROTEIN 6.7 GM/DL (6.4-8.2)
[2019-07-07 08:30] VITALS: BP 167/74
--- NOTE | 2019-07-07 09:53 | PHACANCOPD ---
PHARMACY VANCOMYCIN DOSING Pt Demographics Demographics Patient Age:18 , Weight:55.300 , Gender: female Adjusted Body Weight Vancomycin Vancomycin Target Ranges: 15-20 mcg/ml Vancomycin Load Y/N: Yes Load Dose Date Time Vancomycin Load Dose: 1250 Date: Time: Vancomycin Dose Date: 07/06/19. Current Vancomycin Dose: [1g q24h] Intermittent Dosing?: No Labs Micro Microbiology 07/03/19 Gastrointestinal Tract Panel (PCR) - Final, Complete 07/01/19 Respiratory Virus Panel (PCR) ([facility]) - Final, Complete Mycoplasma Pneumoniae 06/29/19 Blood Culture - Final, Complete NO GROWTH AFTER 5 DAYS Creatinine Clearance Date:07/06/19. Creatinine Clearance: . Assessment and Plan Maintaining Current Dose?: No Reason for dose change: Trough too low Pharmacist Note Pharmacist Note Date: 07/06/19. Pharmacist note: Trough obtained at 0830 resulted at 3.8 after #2 1gram doses. No SCr was obtained this morning so I am going to try to get that from this mornings labs, however, renal function improved on 07/04 so I am initially changing dose to 1G q12h @0900 with a trough scheduled for tomorrow at 0800. I will continue to monitor this patient and adjust dose as needed. 07/07/19: Trough at 0817 resulted low at 10.5. I changed dose to 1g vancomycin IV q8h @1000 with a trough scheduled tomorrow @0900. I will continue to monitor this patient and adjust dose as needed. CHRISTINA GOMES PHARMACY Jul 07, 2019 09:53
[2019-07-07] MEDS: CHLORHEXIDINE GLUCONATE 0.12 % 15ML UDC (PERIDEX ORAL RINSE) MT SCH ×2 (10:32→20:29)
[2019-07-07] MEDS: LACTOBACILLUS ACIDOPHILUS CAP (BACID) PO SCH (10:32)
[2019-07-07] MEDS: CEFDINIR 300 MG CAP (OMNICEF) PO SCH ×2 (10:32→20:29)
[2019-07-07] MEDS: PANTOPRAZOLE 40MG INJ (PROTONIX) (C9113) IV SCH (10:32)
[2019-07-07] MEDS: ENOXAPARIN 40 MG/0.4 ML SYRINGE (J1650) SC SCH (10:33)
[2019-07-07] MEDS: VANCOMYCIN HCL 1,000 MG, VIAL MATE ADAPTER 1 EACH in D5W 250 ML IV SCH ×2 (10:48→17:31)
[2019-07-07 11:57] VITALS: BP 133/63
[2019-07-07] MEDS: PANTOPRAZOLE 40MG TAB (PROTONIX) PO SCH (11:57)
[2019-07-07] MEDS: predniSONE 10 MG TAB PO SCH (11:57)
[2019-07-07] MEDS: amLODIPine 5 MG TAB PO SCH (11:58)
--- NOTE | 2019-07-07 12:03 | CCN ---
DATE OF SERVICE: 07/07/2019 PULMONARY CRITICAL CARE NOTE: Johana is seen in the intensive care unit (ICU). Her mother is at bedside. Johana had a good night last night and tolerated continuous positive airway pressure (CPAP) at 5 cm of pressure with a 20 liter oxygen bleed in well, and her oxygen saturations were good during the course of the night on CPAP. She continues to make progress and was able to tolerate oxygen by nasal cannula at 4 liters when she was awake. She has been afebrile. Blood pressure does remain high. She had been getting some diuresis but this has been held as she has been a little bit dry. Overall she is slowly making progress. She does remain on antibiotic coverage of cefdinir and vancomycin for pneumonia. PHYSICAL EXAMINATION: Vital signs: Temperature is 97.7, pulse 83, respiratory rate 16, blood pressure is 167/74, pulse oximetry is 91% on 4 liters by nasal cannula. General: The patient does sit up. She is conversant. She initially was using CPAP and was then converted to oxygen by nasal cannula. HEENT: Head is normocephalic, atraumatic. Pupils equal and react to light. Moist mucous membranes. She has a crowded airway with macroglossia. Neck: Neck is supple. Right internal jugular line is in place without any significant erythema. She has no thyromegaly. There is no tracheal deviation. No cervical lymphadenopathy. Cardiac: Regular rate and rhythm. S1, S2. There is 2/6 systolic murmur that is heard both anterior and also posteriorly. Pulmonary: Crackles at the bases. Abdomen: Positive bowel sounds, soft, nontender. No rebound or guarding. Extremities: No clubbing, cyanosis or edema. LABORATORY DATA: WBC 7.4, hemoglobin 11.5, hematocrit 32.2, platelets 412. Sodium 135, potassium 4.4, chloride 95, carbon dioxide 36, BUN 26, creatinine 0.83, glucose 157, calcium 8.6, total bilirubin 0.3, AST 11, ALT 27, alkaline phosphatase 64, total protein 6.7, albumin 2.7. Blood gas pH 7.455, pCO2 40.78 and pO2 is 81.7. Chest x-ray shows continued improvement of the lower lobe opacities. Sternotomy wires noted. Right internal jugular (IJ) line is in place. ASSESSMENT/PLAN: 1. Hypoxia. Hypoxia does continue to improve. She does appear to have underlying obstructive sleep apnea and will need to be tested as an outpatient and should followup with pulmonary for this once she is able to be discharged. She likely has some lung derecruitment from the pneumonia, which has caused the hypoxia, which is also affected by underlying obstructive sleep apnea. She does continue to show some gradual improvement. She does remain on cefdinir and vancomycin for the pneumonia. We will obtain a procalcitonin level to see if it will be possible de-escalate antibiotic therapy. Plan will be to discontinue her Solu-Medrol and change her over to oral prednisone. 2. Hypertension. The patient's blood pressure has remained high. She will be started on Norvasc 5 mg daily. We will hold off on any further diuresis today as she still does appear little dry, but may need to diurese her again at some point. We will continue to monitor her fluid balance closely. 3. Gastrointestinal (GI) prophylaxis. The patient had been on IV Protonix and will change this to oral Protonix. 4. Deep venous thrombosis (DVT) prophylaxis. The patient is on Lovenox. Edited: 07/07/2019 1203 ronel RAMIREZ
[2019-07-07 15:40] VITALS: BP 106/62
[2019-07-07 20:31] VITALS: BP 133/60
--- NOTE | 2019-07-07 23:23 | REP ---
Clinical: Hypoxia. Comparison: 07/06/2019. Findings: Perihilar and bibasilar infiltrates are relatively similar to prior examination. Right IJ line with tip in the SVC remains stable. No obvious effusion. No pneumothorax. Prior sternotomy. Skeletal structures intact. Impression: No significant change from prior examination. Electronically Signed by William Mistry MD 07/07/2019 08:18 A
[2019-07-08] VITALS (7 sets, daily range): BP systolic 119–157; BP diastolic 56–73
[2019-07-08] MEDS: ALBUTEROL SULFATE 2.5 MG/0.5 ML INH NEB SOLN NEB SCH ×4 (01:42→19:51)
[2019-07-08] MEDS: VANCOMYCIN HCL 1,000 MG, VIAL MATE ADAPTER 1 EACH in D5W 250 ML IV SCH (03:29)
[2019-07-08 05:56] LABS: HEMOGLOBIN 10.8 g/dl (12.0-15.5); MEAN CORPUSCULAR HEMOGLOBIN 32.7 pg (27.0-33.0); MEAN CORPUSCULAR HGB CONC 33.8 g/dl (32.0-36.5); PLATELET COUNT, AUTOMATED 377 10^3/uL (150-450); WHITE BLOOD COUNT 8.3 10^3/uL (4.0-10.0)
[2019-07-08 06:29] LABS: ALBUMIN 2.6 GM/DL (3.2-5.2); ALT/SGPT 24 U/L (12-78); BILIRUBIN,TOTAL 0.3 MG/DL (0.2-1.0); BLOOD UREA NITROGEN 25 MG/DL (7-18); CARBON DIOXIDE LEVEL 35 MEQ/L (21-32); CHLORIDE LEVEL 96 MEQ/L (98-107); CREATININE FOR GFR 0.82 MG/DL (0.55-1.30); GLUCOSE, FASTING 125 MG/DL (70-100); SODIUM LEVEL 137 MEQ/L (136-145); TOTAL PROTEIN 5.9 GM/DL (6.4-8.2)
[2019-07-08] MEDS: PANTOPRAZOLE 40MG TAB (PROTONIX) PO SCH (09:45)
[2019-07-08] MEDS: CEFDINIR 300 MG CAP (OMNICEF) PO SCH (09:45)
[2019-07-08] MEDS: amLODIPine 5 MG TAB PO SCH ×2 (09:46→10:38)
[2019-07-08] MEDS: LACTOBACILLUS ACIDOPHILUS CAP (BACID) PO SCH (09:46)
[2019-07-08] MEDS: CHLORHEXIDINE GLUCONATE 0.12 % 15ML UDC (PERIDEX ORAL RINSE) MT SCH (09:47)
[2019-07-08] MEDS: predniSONE 10 MG TAB PO SCH (09:47)
[2019-07-08] MEDS: ENOXAPARIN 40 MG/0.4 ML SYRINGE (J1650) SC SCH (09:47)
[2019-07-08] MEDS ORDERED: predniSONE 20 MG TAB PO SCH (10:05)
[2019-07-08] MEDS ORDERED: FUROSEMIDE 20 MG/2 ML VIAL (J1940) IV ONE (10:15)
[2019-07-08] MEDS: predniSONE 20 MG TAB PO SCH (10:35)
--- NOTE | 2019-07-08 10:38 | CCN ---
DATE OF SERVICE: 07/08/2019 Johana is seen in the intensive care unit (ICU). She is tolerating C-PAP at night and for all forms of sleep. Nursing has been working towards decreasing the oxygen bleed in and currently this morning she is tolerating C-PAP with 5 liters of pressure with 3 liters oxygen bleed in and maintaining sats in the low 90s. C-PAP was taken off and her oxygen saturations were in the low 90s at 4 liters of oxygen by nasal cannula. The patient has been afebrile. Her fluid balance yesterday was negative 720. Overall, the patient is slowly showing improvement and appears to be requiring less supplemental oxygen. Blood pressure is down somewhat after the addition of Norvasc 5 mg yesterday. PHYSICAL EXAMINATION: Vitals: Temperature 96.7, pulse 81, respiratory rate 14, blood pressure 139/64, current oxygen saturation is 92% on 4 liters supplemental oxygen by nasal cannula. General: Patient sits up. She is conversant and follows commands. HEENT: Head is normocephalic, atraumatic. Moist mucous membranes. She has a crowded airway with macroglossia. Neck: Neck is supple. Right internal jugular line is in place without any erythema. She has no tracheal deviation. No cervical lymphadenopathy. Cardiac: Regular rate and rhythm. S1, S2. 2/6 systolic murmur. Pulmonary: Some crackles heard at the left base. No accessory muscle use. Abdomen: Positive bowel sounds, soft, nontender. No rebound or guarding. Extremities: No clubbing, cyanosis or edema. LABORATORY DATA: WBC 8.3, hemoglobin 10.8, hematocrit 32.0, platelets 377. Sodium 137, potassium 4.0, chloride 96, carbon dioxide 35, BUN 25, creatinine 0.82, glucose 125, calcium 8.0, total bilirubin 0.3, AST 7, ALT 24, alkaline phosphatase 64, total protein 5.9, albumin 2.6. ASSESSMENT/PLAN: 1. Hypoxia. Hypoxia does continue to show gradual improvement. Likely, hypoxia is due to atelectasis and derecruitment of the lungs likely due to recent pneumonia. There is a possible underlying diastolic dysfunction as well as a probable underlying obstructive sleep apnea. She is using C-PAP at night and will need a sleep study as an outpatient. Recent pneumonia has been treated with Omnicef and vancomycin. A procalcitonin level drawn yesterday was 0.04. Can stop the antibiotics. Will continue to decrease the prednisone and place the patient on prednisone 20 mg daily. Continue to work towards diuresis and will give Lasix 20 mg IV times one dose today. Will place the patient on a 2 liter fluid restriction. 2. Hypertension. The patient's blood pressure has improved to some extent on Norvasc. Will continue the Norvasc 5 mg daily. Continue to monitor closely.
--- NOTE | 2019-07-08 16:51 | IPNPDOC ---
Subjective Date Seen The patient was seen on 07/08/19. Subjective Chief Complaint/HPI No complaints at present. Sitting up in chair. Not on any oxygen supplementation at present. Denies any SOB , has some cough, denies any abdominal pain , nausea or vomiting or diarrhea. Objective Physical Examination General Exam: Positive: Alert, Cooperative, No Acute Distress Eye Exam: Positive: PERRLA, Conjunctiva & lids normal, EOMI; Negative: Sclera icteric ENT Exam: Positive: Atraumatic, Mucous membr. moist/pink, Pharynx Normal, Tongue Midline, Other ENT (tongue large and frequent protrution.) Neck Exam: Positive: Supple; Negative: JVD, thyromegaly Chest Exam: Positive: Clear to auscultation, Normal air movement Heart Exam: Positive: Rate Normal, Regular Rhythm, Normal S1, Normal S2; Negative: Murmurs, Rubs Telemetry: Positive: No significant arrhythmia Abdomen Exam: Positive: Normal bowel sounds, Soft; Negative: Tenderness, Hepatospenomegaly Extremity Exam: Negative: Clubbing, Cyanosis, Edema Skin Exam: Positive: Nl turgor and temperature; Negative: Rash, Breakdown Neuro Exam: Positive: Strength at 5/5 X4 ext, Normal Tone Assessment /Plan Assessment 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 She was found to have influenza A positive by rapid flu swab and had a left lobar pneumonia on chest xray. She was needing Supplemental oxygen via face mask and her oxygen level improved from 80% to 91%. She was admitted on 06/29/19 for Acute respiratory failure with hypoxia, pneumonia and Influenza A Acute respiratory Failure with hypoxia due to Influenza A and pneumonia on the back ground of probable ESA. improving. continue oxygen supplementation by nasal canula prn, CPAP with oxygen bleed in at night. continue prednisone taper, albuterol Influenza A did not get tamiflu as was already out ot the time frame when she first went to urgent care. has some post infectious bronchospasm. continue albuterol and prednisone taper. Pneumonia secondary bacterial pneumonia after influenza A vs viral pneumonia Most likely viral pneumonia as there was no elevation of WBC and her procalcitonin level was very low. finished course of antibiotics. Probable ESA Patient was diagnosed with probable underlying ESA here in hospital doing much better with CPAP Will need formal sleep study after discharge will refer to pulmonary after discharge for arranging sleep study Hypertension noted during this hospitalization started on amlodipine. Down's Syndrome Possibly Mild Coarctation of aorta by echo Has normal systolic and diastolic function Plan/VTE VTE Prophylaxis Ordered?: Yes VS, I&O, 24H, Fishbone Vital Signs/I&O Vital Signs Date Time Temp Pulse Resp B/P (MAP) Pulse Ox O2 Delivery O2 Flow Rate FiO2 07/08/19 12:00 97.3 84 20 122/56 (78) 91 Room Air 07/08/19 10:01 3.0 07/07/19 00:00 45 l I&O- Last 24 Hours up to 6 AM 07/08/19 06:00 Intake Total 1430 ml Output Total 1800 ml Balance -370 ml Laboratory Data 24H LABS Laboratory Tests 2 07/08/19 05:41: Nucleated Red Blood Cells % (auto) 0.0, Anion Gap 6L, Calcium Level 8.0L, Total Bilirubin 0.3, Aspartate Amino Transf (AST/SGOT) 7, Alanine Aminotransferase (ALT/SGPT) 24, Alkaline Phosphatase 64, Total Protein 5.9L, Albumin 2.6L, Albumin/Globulin Ratio 0.79L CBC/BMP Laboratory Tests 07/08/19 05:41 Microbiology Microbiology 07/03/19 Gastrointestinal Tract Panel (PCR) - Final, Complete 07/01/19 Respiratory Virus Panel (PCR) ([facility]) - Final, Complete Mycoplasma Pneumoniae 06/29/19 Blood Culture - Final, Complete NO GROWTH AFTER 5 DAYS JANE RAMESH MD Jul 08, 2019 14:28
[2019-07-08] MEDS ORDERED: SODIUM CHLORIDE 0.9% INJ 10 ML SYR IV PRN (19:45)
[2019-07-08] MEDS: SODIUM CHLORIDE 0.9% INJ 10 ML SYR IV SCH (21:01)
[2019-07-09] VITALS: BP 138/89
[2019-07-09] MEDS: ALBUTEROL SULFATE 2.5 MG/0.5 ML INH NEB SOLN NEB SCH ×2 (01:47→07:59)
[2019-07-09 04:00] VITALS: BP 130/60
[2019-07-09 04:57] LABS: HEMATOCRIT 32.9 % (36.0-47.0); HEMOGLOBIN 11.2 g/dl (12.0-15.5); MEAN CORPUSCULAR HEMOGLOBIN 33.1 pg (27.0-33.0); MEAN CORPUSCULAR VOLUME 97.3 fl (80.0-96.0); PLATELET COUNT, AUTOMATED 347 10^3/uL (150-450); RED BLOOD COUNT 3.38 10^6/uL (4.00-5.40); WHITE BLOOD COUNT 8.4 10^3/uL (4.0-10.0)
[2019-07-09 05:27] LABS: ALBUMIN 2.7 GM/DL (3.2-5.2); ALT/SGPT 26 U/L (12-78); BILIRUBIN,TOTAL 0.3 MG/DL (0.2-1.0); BLOOD UREA NITROGEN 28 MG/DL (7-18); CALCIUM LEVEL 8.5 MG/DL (8.5-10.1); CARBON DIOXIDE LEVEL 36 MEQ/L (21-32); CHLORIDE LEVEL 95 MEQ/L (98-107); CREATININE FOR GFR 0.84 MG/DL (0.55-1.30); GLUCOSE, FASTING 85 MG/DL (70-100); POTASSIUM SERUM 3.9 MEQ/L (3.5-5.1); SODIUM LEVEL 136 MEQ/L (136-145); TOTAL PROTEIN 6.2 GM/DL (6.4-8.2)
[2019-07-09] MEDS: SODIUM CHLORIDE 0.9% INJ 10 ML SYR IV SCH (06:00)
[2019-07-09] MEDS ORDERED: NYSTATIN 500,000 U/5 ML SUSP UDC SS SCH (09:00)
[2019-07-09 09:44] VITALS: BP 116/58
[2019-07-09] MEDS: ENOXAPARIN 40 MG/0.4 ML SYRINGE (J1650) SC SCH (09:45)
[2019-07-09] MEDS: predniSONE 20 MG TAB PO SCH (09:45)
[2019-07-09 09:46] VITALS: BP 116/58
[2019-07-09] MEDS: amLODIPine 5 MG TAB PO SCH (09:46)
[2019-07-09] MEDS ORDERED: NYST50SS SS (10:58)
[2019-07-09] MEDS ORDERED: AMLO5TAB6 PO (10:58)
--- NOTE | 2019-07-09 10:58 | IPN ---
DATE: 07/09/2019 Johana is on room air this morning, ambulating well around the nursing unit. She has no hypotension. She was started on an antihypertensive due to the fact that there was concern about diastolic dysfunction precipitating volume overload. She did well with diuresis. I believe she is at her stable outpatient state. She does have symptoms of obstructive sleep apnea. It is difficult because she does have Down syndrome to elucidate all symptoms. She denies morning headaches. She has a large tongue that can obstruct her airway. [place] is not reliable as she has mental impairment. Neck is 41 cm. The patient is at her stable state. She is on room air. She is ready to go home. She is off antibiotic therapy and off steroid therapy. She has excessive daytime somnolence and occasionally naps. This has been going on for a number of years; however, it is suspected during this acute hospitalization. Temperature is 97.5, blood pressure is 116/58 with a pulse of 66 and a sinus rhythm, respiratory rate 16, oxygen saturations 93% on room air. General: Awake, alert and oriented. Affect and mood are appropriate. Nutrition and hygiene are good. Pupils equal, reactive to light. Mucous membranes are moist. There is some thrush over the soft palate and tongue. Neck is supple. No tracheal deviation or mass. HEENT: Mallampati 4, large tongue. Pulmonary: Clear to auscultation without rales, rhonchi or wheezes. No dullness to percussion. No accessory muscle use. Cardiac: Regular S1, S2 without audible murmur, rub or gallop. No elevated jugular venous pressure. No systemic edema. Abdomen is soft, nontender, nondistended. No hepatosplenomegaly. No masses or hernia. Extremities: No cyanosis, clubbing or edema. Skin: No rash, jaundice or bruising. Musculoskeletal: Normal muscle development for stated age. Neurologic: No unilateral weakness. No tremor. No myoclonus. Laboratory evaluation shows a white blood cell count of 8.4, hemoglobin 11.2, platelet count of 347, sodium is 136, potassium 3.9, chloride is 95, bicarbonate of 36, BUN of 28 and creatinine of 0.84, glucose of 85. IMPRESSION: 1. Hypoxia likely secondary to a combination of recent pneumonia, probable underlying diastolic dysfunction. She will require followup. 2. Probable obstructive sleep apnea. Now that she is at her baseline stable state, will require sleep testing. I have this scheduled for Friday night. I have a high suspicion of underlying obstructive sleep apnea given the appearance of her airway. 3. Oral candidiasis. Started nystatin swish and swallow. 4. Hypertension. Started on Norvasc. This will need followup with a primary care physician. The patient needs to be assigned a primary care physician. I will leave this up to the hospitalist service.
--- NOTE | 2019-07-28 13:56 | DS.PDOC ---
Discharge Summary General Date of Admission Jun 29, 2019 at 13:31 Date of Discharge 07/09/19 Discharge Summary PROCEDURES PERFORMED DURING STAY: Right IJ line. DISCHARGE DIAGNOSES: Acute respiratory failure with hypoxia due to pneumonia Newly diagnosed ESA in hospital Influenza A Mycoplasma pneumonia Iatrogenic fluid overload. SECONDARY DIAGNOSIS: Trisomy 21. Scoliosis. History of complete atrioventricular septal defect, which is status post repair at 11 weeks of age. had a second repair at age 9. According to the mother, according to charts there was subaortic stenosis at that time. Macroglossia COMPLICATIONS/CHIEF COMPLAINT: Pneumonia,Hypoxemia. 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 She was found to have influenza A positive by rapid flu swab and had a left lobar pneumonia on chest xray. She was needing Supplemental oxygen via face mask and her oxygen level improved from 80% to 91%. She was admitted on 06/29/19 for Acute respiratory failure with hypoxia, Lobar pneumonia and mycoplasma pneumonia and Influenza A initially to the pediatric service then was moved to ICU for severe hypoxia. She was on Vapotherm . She was found to be really needing high oxygen during sleep and it was felt she has ESA and was started on CPAP with good response. She also had elvated d mimer and as she was not on anticoagulant during the first 3 days of hospital stay there was some concern for PE causing her hypoxia so was empirically started on heparin infusion. She had a VQ scan which was low probability. She was and finally transferred to the hospitalist service after improvement of her hypoxia. Acute respiratory Failure with hypoxia due to Influenza A and pneumonia on the back ground of probable ESA. improving. continue oxygen supplementation by nasal canula prn, CPAP with oxygen bleed in at night. continue prednisone taper, albuterol Influenza A did not get tamiflu as was already out ot the time frame when she first went to urgent care. has some post infectious bronchospasm. continue albuterol and prednisone taper. Pneumonia secondary bacterial pneumonia after influenza A vs viral pneumonia Most likely viral pneumonia as there was no elevation of WBC and her procalc itonin level was very low. finished course of antibiotics. Probable ESA Patient was diagnosed with probable underlying ESA here in hospital doing much better with CPAP Will need formal sleep study after discharge will refer to pulmonary after discharge for arranging sleep study Hypertension noted during this hospitalization started on amlodipine. Trisomy 21 with macroglossia, sleeps with her tongue out Possibly Mild Coarctation of aorta by echo Has normal systolic and diastolic function DISCHARGE MEDICATIONS: Please see below. ALLERGIES: Please see below. PHYSICAL EXAMINATION ON DISCHARGE: VITAL SIGNS: Please see below. General Exam: Positive: Alert, Cooperative, No Acute Distress Eye Exam: Positive: PERRLA, Conjunctiva & lids normal, EOMI; Negative: Sclera icteric ENT Exam: Positive: Atraumatic, Mucous membr. moist/pink, Pharynx Normal, Tongue Midline, Other ENT (Macroglossia and frequent protrution.) Neck Exam: Positive: Supple; Negative: JVD, thyromegaly Chest Exam: Positive: Clear to auscultation, Normal air movement Heart Exam: Positive: Rate Normal, Regular Rhythm, Normal S1, Normal S2; Negative: Murmurs, Rubs Telemetry: Positive: No significant arrhythmia Abdomen Exam: Positive: Normal bowel sounds, Soft; Negative: Tenderness, Hepatospenomegaly Extremity Exam: Negative: Clubbing, Cyanosis, Edema Skin Exam: Positive: Nl turgor and temperature; Negative: Rash, Breakdown Neuro Exam: Positive: Strength at 5/5 X4 ext, Normal Tone LABORATORY DATA: Please see below. IMAGING: VQ scan low probability of pulmonary embolism. ACTIVITY: [As tolerated]. DIET: As tolerated DISPOSITION: 01 Home, Self-Care. DISCHARGE INSTRUCTIONS: PMD in 1 week SLeep study on 07/11/19 DISCHARGE CONDITION: [Stable]. TIME SPENT ON DISCHARGE: 40 minutes. Vital Signs/I&Os Vital Signs Date Time Temp Pulse Resp B/P (MAP) Pulse Ox O2 Delivery O2 Flow Rate FiO2 07/09/19 09:46 116/58 07/09/19 09:45 91 Room Air 07/09/19 09:44 97.8 72 18 07/09/19 07:59 21 07/08/19 10:01 3.0 I&O- Last 24 Hours up to 6 AM 07/10/19 06:00 Intake Total 240 ml Output Total 800 ml Balance -560 ml Microbiology Microbiology 07/03/19 Gastrointestinal Tract Panel (PCR) - Final, Complete 07/01/19 Respiratory Virus Panel (PCR) ([facility]) - Final, Complete Mycoplasma Pneumoniae Discharge Medications Scheduled Amlodipine Besylate (Amlodipine Besylate) 5 Mg Tablet, 5 MG PO DAILY Nystatin (Nystatin Oral Susp) 100,000 Unit/1 Ml Oral.susp, 5 ML SS TID Miscellaneous Medications Albuterol Sulf (Albuterol Sulfate) 2.5 Mg/3 Ml Vial.neb, (Reported) Allergies Coded Allergies: No Known Drug Allergies (Verified Allergy, Unknown, 06/29/19) JANE RAMESH MD Jul 10, 2019 14:49
== END 2019-07-09 12:10 | disposition home or self-care (01) | DRG 193 ==
LOC: M PED 13:31 → M ICU 07-04 09:51
PROVIDERS: ADMIT Pediatrics; ATTEND Internal Medicine Nephrology
PROC: 05HM33Z Insertion of Infusion Device into Right Internal Jugular Vein, Percutaneous Approach (ICD-10-PCS; principal; 2019-07-04)
DX: J10.00 Influenza due to other identified influenza virus with unspecified type of pneumonia (principal); J96.01 Acute respiratory failure with hypoxia; B37.0 Candidal stomatitis; Q90.9 Down syndrome, unspecified; E87.6 Hypokalemia; I10 Essential (primary) hypertension; G47.33 Obstructive sleep apnea (adult) (pediatric); Q38.2 Macroglossia

== ENCOUNTER → 2019-07-11 | Outpatient (CLI) | payer OTHER, MEDICAID ==
[~2019-07-11] MED LIST changes: +AMLO5TAB6 PO; +NYST50SS SS
--- NOTE | 2019-07-13 16:41 | SLEEPCENT ---
DATE OF PROCEDURE: 07/11/2019 ORDERED BY: Jonah Thompson DO Nocturnal polysomnography was performed for evaluation of sleep physiology in this patient with a history of excessive somnolence and nonrestorative sleep. 8 hours and 35 minutes of data were reviewed. There were 467.5 minutes of sleep identified. Sleep latency was short at 1 minute. Rapid eye movement (REM) sleep was delayed at 443 minutes. Sleep architecture showed fragmentation and poor progression. Overall sleep efficiency was 91.1% but REM time was severely diminished. The electrocardiogram showed a sinus rhythm with an interventricular conduction delay, average heart rate 84 beats per minute. EEG showed normal waveforms for awake and sleep. There were 190 respiratory events identified of 10 seconds in duration or greater for an apnea-hypopnea index of 24.4. The events were primarily obstructive, not exclusive to sleep stage nor to body posture. Arousals from respiratory events occurred 9.8 times per hour and oxygen desaturations were seen into the 70s. There was some minimal limb activity appreciated. Limb movement arousal index 3.1. IMPRESSION: Obstructive sleep apnea syndrome (G47.33). Apnea-hypopnea index 24.4. RECOMMENDATIONS: The patient should be encouraged to return to the sleep disorder center for pressure therapy. In the interim alcohol and sedative avoidance should be practiced and caution exercised during the operation of motor vehicles.
== END ==
LOC: M SLEEP 20:00
PROVIDERS: ATTEND Internal Medicine Pulmonary Disease
DX: G47.33 Obstructive sleep apnea (adult) (pediatric) (principal)

== ENCOUNTER → 2019-07-17 | Outpatient (CLI) | payer OTHER, MEDICAID ==
--- NOTE | 2019-07-20 16:51 | SLEEPCENT ---
DATE OF PROCEDURE: 07/17/2019 ORDERED BY: Dr. Thompson Nocturnal polysomnography was performed for the titration of pressure therapy in this patient with obstructive sleep apnea syndrome. Apnea-hypopnea index of 24.4. For testing a ResMed air fit nasal mask of medium size was used 4 cm of water pressure were applied to the circuit and the lights were extinguished. 9 hours and 5 minutes of data were reviewed. There were 522 minutes of sleep identified. Sleep latency was short at 3.5 minutes. REM latency was prolonged at 198.5-minute sleep architecture was good with four REM cycles. Overall sleep efficiency 96.3%. The patient's electrocardiogram showed sinus rhythm with an average heart rate of 75 beats per minute. EEG showed normal waveforms for awake and sleep. Respiratory events were reasonably palliated with C-PAP at a pressure of 7 cm. There was some limb activity in the EMG leads but arousals from limb events occurred 5.9 times per hour. IMPRESSION: Obstructive sleep apnea syndrome (G47.33) RECOMMENDATIONS: Nightly use of pressure therapy 7 cm of water.
== END ==
LOC: M SLEEP 20:00
PROVIDERS: ATTEND Physician Assistant
DX: G47.33 Obstructive sleep apnea (adult) (pediatric) (principal)

== ENCOUNTER → 2023-01-21 | Outpatient (REF) | payer OTHER ==
[~2023-01-21] MED LIST changes: +ALBU2.5V10; -ALBU83IN; +AMLO1TAB24 PO; -AMLO5TAB6 PO; +NYST-38 SS; -NYST50SS SS
[2023-01-21 19:49] LABS: GC DNA AMPLIFICATION NEGATIVE (NEGATIVE)
== END ==
LOC: M LAB REF 17:32
PROVIDERS: ATTEND Registered Nurse
DX: Z11.3 Encounter for screening for infections with a predominantly sexual mode of transmission (principal)

== ENCOUNTER → 2023-01-27 | Outpatient (REF) | payer OTHER ==
[2023-01-27 22:23] LABS: APPEARANCE, URINE CLEAR (CLEAR); BACTERIA, URINE AUTO NEGATIVE (NEGATIVE); BILIRUBIN, URINE AUTO NEGATIVE (NEGATIVE); BLOOD, URINE BLOOD NEGATIVE (NEGATIVE); COLOR, URINE COLORLESS (YELLOW); GLUCOSE, URINE (UA) AUTO NEGATIVE (NEGATIVE); KETONE, URINE AUTO NEGATIVE (NEGATIVE); LEUKOCYTE ESTERASE, URINE AUTO NEGATIVE (NEGATIVE); NITRITE, URINE AUTO NEGATIVE (NEGATIVE); PROTEIN, URINE AUTO NEGATIVE (NEGATIVE); RBC, URINE AUTO 0 /HPF (0-3); SPECIFIC GRAVITY URINE AUTO 1.003 (1.002-1.035); SQUAMOUS EPITHELIAL CELL UR AU 0 /HPF (0-6); UROBILINOGEN, URINE AUTO 0.2 mg/dL (0.0-2.0); WBC, URINE AUTO 0 /HPF (0-3)
== END ==
LOC: M LAB REF 21:55
PROVIDERS: ATTEND Physician Assistant Medical
DX: N39.0 Urinary tract infection, site not specified (principal)

== ENCOUNTER → 2024-01-29 | Outpatient (REF) | payer OTHER, MEDICAID, MEDICARE ==
[2024-01-29 21:11] LABS: GC DNA AMPLIFICATION NEGATIVE (NEGATIVE)
== END ==
LOC: M LAB REF 17:04
PROVIDERS: ATTEND Registered Nurse
DX: Z00.00 Encounter for general adult medical examination without abnormal findings (principal); Z11.3 Encounter for screening for infections with a predominantly sexual mode of transmission